=== PATIENT | male | born 1950 | race Caucasian/White ===

== ENCOUNTER 2017-04-03 15:29 | Inpatient (IN) | payer MEDICARE, OTHER ==
[~2017-04-03] VITALS: Ht 185.4 cm; Wt 152.3 kg
[2017-04-03 16:09] LABS: BASOPHILS 0.2 % (0-2); EOSINOPHILS 1.7 % (0-7); HEMATOCRIT 39.9 % (42.0-54.0); HEMOGLOBIN 13.3 g/dL (13.5-17.5); IMMATURE GRANULOCYTES 1.5 % (0-5); LYMPHOCYTES 16.3 % (15-50); MCH 32.8 pg (26.0-34.0); MCHC 33.3 g/dL (31.0-37.0); MCV 98.5 fL (80.0-100.0); MEAN PLATELET VOLUME 10.3 fL (7.4-10.4); MONOCYTES 7.7 % (2-11); NEUTROPHILS 72.6 % (40-80); PLATELET COUNT 241 10x3/uL (130-400); RBC 4.05 10x6/uL (4.20-6.10); RDW 12.7 % (11.5-14.5); WBC 8.9 10x3/uL (4.8-10.8)
[2017-04-03 17:08] LABS: ALKALINE PHOSPHATASE 87 U/L (46-116); ALT (SGPT) 22 U/L (10-68); BILIRUBIN - TOTAL 0.23 mg/dL (0.2-1.3); CALC OSMOLALITY 287 mosm/kg (275-300); CARBON DIOXIDE 30.8 mmol/L (21.0-32.0); CHLORIDE - SERUM 101 mmol/L (98-107); CREATINE KINASE 97 UL (21-232); CREATININE - SERUM 1.1 mg/dL (0.6-1.3); GLUCOSE 272 mg/dL (74-106); POTASSIUM - SERUM 4.6 mmol/L (3.5-5.1); PRO BNP 201 pg/mL (0-125); PROTEIN - SERUM 6.1 g/dL (6.4-8.2); SODIUM 138 mmol/L (136-145); UREA NITROGEN 18 mg/dL (7-18); eGFR NON AFRICAN AMERICAN 71 mL/min (90-120)
[2017-04-03 17:11] LABS: TROPONIN-I < 0.017 ng/mL (0.000-0.060)
[2017-04-03 19:00] VITALS: BP 127/64
--- NOTE | 2017-04-03 19:45 | NUR ---
ARRIVED ON UNIT VIA W/C BY ER STAFF.
--- NOTE | 2017-04-03 20:00 | NUR ---
PT IN BED WITH HOB UP FOR COMFORT. ALERT & ORIENTED. 02 @ 1L VIA N/C. 20 GAUGE LEFT HAND. BED IN LOWEST POSITION AND CALL LIGHT WITHIN REACH. RN TO DO ASSESSMENT.
[2017-04-03] MEDS ORDERED: FLOMAX0.4 MG PO (20:10)
[2017-04-03] MEDS ORDERED: LANTUS SOL100 UNIT/1 SC (20:10)
[2017-04-03] MEDS ORDERED: ZESTRIL20 MG PO (20:10)
[2017-04-03] MEDS ORDERED: METOPROLOL TART50 MG PO (20:11)
[2017-04-03] MEDS ORDERED: EFFEXOR100 MG PO (20:11)
[2017-04-03] MEDS ORDERED: CELEBREX200 MG PO (20:14)
[2017-04-03] MEDS ORDERED: LIPITOR40 MG PO (20:14)
--- NOTE | 2017-04-03 20:28 | NUR ---
BUSINESS ENTERPRISE OFFICER AT BEDSIDE TO OBTAIN VITALS, CALL LIGHT IN REACH. WILL CONTINUE WITH PLAN OF CARE.
[2017-04-04] VITALS: BP 144/77
--- NOTE | 2017-04-04 03:20 | NUR ---
PT IN BED WITH HOB UP FOR COMFORT. EYES CLOSED. CHEST RISING AND FALLING. BED IN LOWEST POSITION AND CALL LIGHT WITHIN REACH.
[2017-04-04 04:00] VITALS: BP 140/69
--- NOTE | 2017-04-04 08:14 | NUR ---
ASLEEP. WILL CONTINUE TO MONITOR.
[2017-04-04 08:28] VITALS: BP 142/78
[2017-04-04 11:56] VITALS: BP 137/77
[2017-04-04 14:43] VITALS: Ht 185.4 cm; Wt 152.3 kg
[2017-04-04 15:11] VITALS: BP 155/71
--- NOTE | 2017-04-04 16:27 | NUR ---
IV RESTARTED WITH 20 GA 1 IN. IN L HAND ON 1ST ATTEMPT. PT HAS BEEN SITTING UP IN CHAIR MOST OF DAY. WITH O2 ON @ 1.
--- NOTE | 2017-04-04 16:54 | NUR ---
Patient Name: ИРИНА CALLES Admission Status: ER Accout number: [id number] Admission Date: 04-03-2017 : 1950 Admission Diagnosis: Attending: OSBALDO Current LOS: 1 Anticipated DC Date: Planned Disposition: Home Primary Insurance: MEDICARE A & B Discharge Planning Comments: * Is the patient Alert and Oriented? Yes 0 * How many steps to enter\exit or inside your home? NONE 0 * PCP DR. BUTTS 0 * Pharmacy [facility] 0 * Preadmission Environment Home Alone 0 * ADLs Independent 0 * Equipment Nebulizer 0 * Other Equipment NO MEDICAL EQUIPMENT PROVIDER PREFERENCE 0 * List name and contact numbers for known caregivers / representatives who currently or will assist patient after discharge: AMANDA CALLES, SON, 0 * Community resources currently utilized None 0 * Please name any agencies selected above. NONE 0 * Additional services required to return to the preadmission environment? No 0 * Can the patient safely return to the preadmission environment? Yes 0 * Has this patient been hospitalized within the prior 30 days at any hospital? No 0 CM MET WITH PT IN ROOM TO DISCUSS DISCHARGE PLANNING AND NEEDS. PT REPORTS LIVING AT HOME INDEPENDENTLY AND ALONE. PT HAS NEBULIZER WITH NO MEDICAL EQUIPMENT PROVIDER PREFERENCE. PT HAS NO OUTSIDE SERVICES ASSISTING IN THE HOME. CM DISCUSSED AVAILABILITY OF HOME HEALTH, REHAB SERVICES AND MEDICAL EQUIPMENT. PT DENIES DISCHARGE NEEDS, REPORTS HIS SON WILL PICK HIM UP FOR DISCHARGE HOME. PT PLANS TO DISCHARGE HOME ALONE, DENIES DISCHARGE NEEDS AT THIS TIME. CM TO FOLLOW AND ASSIST IF NEEDED. Speedboat Driver: Misael Manuel
[2017-04-04 19:00] VITALS: BP 148/94
--- NOTE | 2017-04-04 19:15 | NUR ---
RECEIVED REPORT, PT SITTING UP IN CHAIR, PT DENIES ANY NEEDS AT THIS TIME, CALL LIGHT IN REACH, WILL CONTINUE PLAN OF CARE
--- NOTE | 2017-04-04 23:40 | NUR ---
SCIENCE ANALYST AT BEDSIDE TO OBTAIN VITALS, CALL LIGHT IN REACH. WILL CONTINUE WITH PLAN OF CARE.
[2017-04-05] VITALS: BP 123/60
--- NOTE | 2017-04-05 02:20 | NUR ---
ASSESSMENT COMPLETE, SEE FLOWSHEET, PT IS SLEEPING, NO DISTESS NOTICED, BED IS LOW, SRX2, CALL LIGHT IN REACH, WILL CONTINUE PLAN OF CARE
[2017-04-05 04:00] VITALS: BP 121/60
[2017-04-05 05:16] LABS: BASOPHILS 0.1 % (0-2); EOSINOPHILS 0 % (0-7); HEMATOCRIT 38.5 % (42.0-54.0); HEMOGLOBIN 12.8 g/dL (13.5-17.5); IMMATURE GRANULOCYTES 0.7 % (0-5); LYMPHOCYTES 6.7 % (15-50); MCH 32.4 pg (26.0-34.0); MCHC 33.2 g/dL (31.0-37.0); MCV 97.5 fL (80.0-100.0); MEAN PLATELET VOLUME 10.4 fL (7.4-10.4); MONOCYTES 4.5 % (2-11); PLATELET COUNT 255 10x3/uL (130-400); RBC 3.95 10x6/uL (4.20-6.10); RDW 12.6 % (11.5-14.5)
[2017-04-05 05:24] LABS: WBC 12.3 10x3/uL (4.8-10.8)
[2017-04-05 05:43] LABS: ALBUMIN 2.8 g/dL (3.4-5.0); BILIRUBIN - TOTAL 0.2 mg/dL (0.2-1.3); CALCIUM 8.8 mg/dL (8.5-10.1); CARBON DIOXIDE 29.6 mmol/L (21.0-32.0); CREATININE - SERUM 1.2 mg/dL (0.6-1.3); POTASSIUM - SERUM 4.6 mmol/L (3.5-5.1); PROTEIN - SERUM 6.3 g/dL (6.4-8.2)
--- NOTE | 2017-04-05 07:33 | NUR ---
AM ROUNDING- RECEIVED REPORT FROM BARREL BANDER NURSE PAOLA. PT IS CURRENTLY LAYING IN BED ON RIGHT SIDE WITH EYES CLOSED RESTING. ON 02 AT 1L VIA NC. NO MONITOR. IV SEEN TO LEFT HAND THAT IS CURRENTLY SALINE LOCKED. NO NEED AT CURRENT TIME. WILL CONTINUE TO MONITOR AND CONTINUE WITH PLAN OF CARE.
[2017-04-05 08:44] VITALS: BP 142/82
--- NOTE | 2017-04-05 11:44 | NUR ---
DR. SHERWOOD ON UNIT. RELAYED INFORMATION THAT DR. BUTTS LEFT IN NURSING MESSAGE. DR. SHERWOOD READ NURSING MESSAGE. WILL AWAIT NEW ORDERS AND CONTINUE TO MONITOR.
[2017-04-05 12:00] VITALS: BP 128/54
--- NOTE | 2017-04-05 13:38 | NUR ---
CALLED DR. OLIVEROS OFFICE AND SPOKE WITH PASCALE, DR. OLIVEROS NURSE. INFORMED PASCALE OF WHAT DR. SHERWOOD STATED REGARDING DR. BUTTS HAVING TO PUT DISCHARGE ORDERS IN DUE TO DR. BUTTS BEING ADMITTING DOCTOR. PASCALE STATES SHE WILL LET DR. BUTTS KNOW. WILL AWAIT CALLBACK AND CONTINUE TO MONITOR.
--- NOTE | 2017-04-05 14:39 | NUR ---
Patient Name: ИРИНА CALLES Encounter No: [id number] : 1950 Primary Insurance: MEDICARE A & B Anticipated DC Date: Planned Disposition: Home DCP follow-up note: CM SPOKE TO DR. SHERWOOD WHO INFORMED CM THAT PT WILL NEED OVERNIGHT PULSE OX TESTING AT HOME AND TESTING FOR OXYGEN. CM SPOKE TO BEDSIDE NURSE, PT 91% AT REST ON ROOM AIR, 86% ON ROOM AIR DURING EXERTION WITH RECOVERY TO 91% AT 2 LITERS. CM SPOKE TO PT IN ROOM. PT UNDERSTANDS ORDER, HAS NO PREFERENCE ON MEDICAL EQUIPMENT COMPANY. PT DENIES FURHTER DISCHARGE NEEDS AND WILL BE CALLING HIMSELF A [facility] FOR TRANSPORT HOME WITH ALL ARRANGEMENTS ARE COMPLETED TODAY. CM CALLED [facility], , SPOKE TO CEDRICK AND PROVIDED REFERRAL FOR OVERNIGHT TESTING AND PORTABLE OXYGEN. CM FAXED REFERRAL TO [facility] AT [phone]. [facility] TO ARRANGE PORTABLE OXYGEN FOR DISCHARGE HOME TODAY AND DELIVER PORTABLE OXYGEN TO PT'S ROOM SHORTLY. [facility] TO CALL PT ON HIS CELL PHONE TO ARRANGE APPOINTMENT AT HOME TONIGHT FOR OVERNIGHT PULSE OXIMETRY TESTING, WITH PT AGREEMENT. PT NOTIFIED. BEDSIDE NURSE NOTIFIED. NO FURTHER DISCHARGE NEEDS IDENTIFIED. Misael Manuel, CASE MANAGEMENT
--- NOTE | 2017-04-05 15:55 | NUR ---
CALLED DR. OLIVEROS OFFICE FOR SECOND TIME AND SPOKE WITH EVELIA. EVELIA INFORMED ME SHE WOULD TALK TO DR. BUTTS REGARDING NURSING MESSAGE ABOUT D/C PT ONCE PULMONARY SEES PT. WILL AWAIT CALLBACK AND CONTINUE TO MONITOR.
--- NOTE | 2017-04-05 16:46 | NUR ---
PT IS CURRENTLY SITTING UP IN CHAIR AWAITING D/C PAPERWORK. WILL GIVE PT D/C INSTRUCTIONS AND EXPLAIN D/C PAPERWORK TO PT ONCE DONE. WILL CONTINUE TO MONITOR.
--- NOTE | 2017-04-05 17:45 | NUR ---
D/C INSTRUCTIONS EXPLAINED TO PT. D/C PAPERWORK SIGNED BY PT AND PLACED IN CHART. IV TO LEFT HAND REMOVED WITH CATH TIP INTACT. PRESSURE HELD ON PT UNTIL BLEEDING STOPPED. COVERED SITE WITH 2X2 GUAZE PAD AND SECURED WITH TAPE. TOLERATED WELL. PT D/C VIA WHEELCHAIR. PT STATES HE CALLED [facility] TO COME GET HIM. OSMEL, HOME HEALTH REGISTERED NURSE AWARE.
--- NOTE | 2017-04-12 10:09 | EC ---
PATIENT:ИРИНА CALLES DATE OF SERVICE: 04/03/17 SEX: M MEDICAL RECORD: [id number] DATE OF : [birth year] LOCATION:D.M2 D.213 AGE OF PATIENT: 66 ADMISSION DATE: 04/03/17 REFERRING PHYSICIAN: INTERPRETING PHYSICIAN: TEA DOCKERY MD ECHOCARDIOGRAM REPORT ECHO CHARGES 4 ECHO COMPLETE CLINICAL DIAGNOSIS: ECHOCARDIOGRAPHIC MEASUREMENTS (adult normal given) AC root (d.<3.7cm) 3.0 LV Septum d (<1.2 cm> 1.8 Valve Excursion 2.0 LV Septum (systole) 2.2 Left Atria (s.<4.0cm> 5.0 LVPW d(<1.2cm) 1.6 RV (d.<2.3cm) 3.6 LVPW (sytole) 2.5 LV diastole(<5.6CM) 5.8 MV E-F(>70mm/sec) LV systole 3.2 LVOT Diameter 2.6 MV exc.(>10mm) Est.ejection fraction (50-75%) Pericardial Effusion N DOPPLER: LVIT A 66.0 E 101 LA RVSP 34.0 LVOT 134 AOP1/2T Asc. Ao 151 RVOT 71.0 RA PA 107 AV Gradient Peak 9.1 AV Mean 4.3 AV Area 4.1 MV Gradient Peak 7.7 MV Mean 2.3 MV Area COMMENTS: Aircraft Cleaner: Livan WALKEROE Inverform Machine Operator:2 Dr. Alegria TAPE# PACS TWO-DIMENSIONAL ECHOCARDIOGRAM WITH DOPPLER 1. Left ventricular chamber size is within normal limits. Left ventricular systolic function is normal. Overall ejection fraction is estimated at 60 percent. 2. Left atrium is enlarged at 5.0 centimeters. Right atrium and right ventricular chamber sizes are as well mildly dilated. 3. Valvular structures have normal structure and motion. 4. Doppler interrogation reveals trace mitral regurgitation, mild tricuspid regurgitation; no other valvular insufficiency or stenosis. No evidence of pericardial effusion or left ventricular thrombus ECHOCARDIOGRAM REPORT [id number] ИРИНА CALLES JEFFREY MD at 1009 CC: [id number] DICTATION DATE: 04/06/17 1113 LAST SCOURER: TC 04/06/17 1111 DIS IN 04/05/17 [id number] [place] [address]
== END 2017-04-05 17:49 | disposition home or self-care (01) | DRG 313 ==
LOC: D.ER 15:29 → D.M2 19:12
PROVIDERS: Emergency Medicine; ADMIT Family Medicine
DX: R07.9 Chest pain, unspecified (principal); Z68.41 Body mass index [BMI] 40.0-44.9, adult; I10 Essential (primary) hypertension; E11.9 Type 2 diabetes mellitus without complications; Z79.4 Long term (current) use of insulin; K21.9 Gastro-esophageal reflux disease without esophagitis

== ENCOUNTER → 2017-08-27 19:28 | Outpatient (CLI) | payer MEDICARE, OTHER ==
[2017-04-04 14:43] VITALS: BMI 43.7
[~2017-08-27 19:28] MED LIST: CELEBREX200 MG PO; EFFEXOR100 MG PO; FLOMAX0.4 MG PO; LANTUS SOL100 UNIT/1 SC; LIPITOR40 MG PO; METOPROLOL TART50 MG PO; PREDNISONE20 MG PO; ZESTRIL20 MG PO
== END | disposition home or self-care (01) ==
LOC: D.SLEEP 08:00
DX: G47.33 Obstructive sleep apnea (adult) (pediatric) (principal); G47.19 Other hypersomnia

== ENCOUNTER → 2017-10-15 08:17 | Outpatient (CLI) | payer MEDICARE, OTHER ==
[2017-04-04 14:43] VITALS: BMI 43.7
[2017-10-16 08:17] LABS: IMMUNOGLOBULIN E 94 IU/mL (0-100)
[2017-10-16 12:15] LABS: IMMUNOGLOBULIN A 182 mg/dL (61-437); IMMUNOGLOBULIN G 632 mg/dL (700-1600)
== END | disposition home or self-care (01) ==
LOC: D.RT 10-08 08:00 → D.LAB 10-08 09:00 → D.RAD 10-08 09:30 → D.RT 08:17
PROVIDERS: Internal Medicine Pulmonary Disease
DX: J45.909 Unspecified asthma, uncomplicated (principal)

== ENCOUNTER 2017-11-02 05:48 | Inpatient (IN) | payer MEDICARE, OTHER ==
[~2017-11-02] VITALS: Ht 185.4 cm; Wt 153.2 kg
--- NOTE | ~2017-11-02 | HP ---
PATIENT: ИРИНА CALLES MEDICAL RECORD: [id number] ACCOUNT: [id number] LOCATION:[address] : [birth year] ADMISSION DATE: 11/02/17 HISTORY AND PHYSICAL EXAMINATION CHIEF COMPLAINT: Shortness of breath and sinus pain and pressure. HISTORY OF PRESENT ILLNESS: A 67-year-old male patient presented to the Emergency Room with complaint of increased shortness of breath, body aches, fever, chills. Started Saturday afternoon, worse this morning, worse in supine position, has a history of COPD with oxygen dependent at 2 liters at home, also history of obstructive sleep apnea, CPAP dependent; history of hypertension; diabetes mellitus, insulin-dependent; depression. REVIEW OF SYSTEMS: GENERAL: No reported change in weight. HEENT: Admits to sinus pain, pressure. Denies visual changes, tinnitus or epistaxis. CARDIOVASCULAR: Denies chest pain, does admit to shortness of breath, dyspnea on exertion. PULMONARY: Denies hemoptysis, denies night sweats. Admits dyspnea on exertion, hypoxemia, oxygen dependent, obstructive sleep apnea as noted above. GASTROINTESTINAL: Denies hematemesis, hematochezia or melena. GENITOURINARY: Denies dysuria. MUSCULOSKELETAL: No acute changes. ENDOCRINE: Denies polyuria, polydipsia, or polyphagia. He is insulin-dependent diabetic. MEDICATIONS: Metoprolol, Lantus inhaler, Effexor, oxygen at 2 liters. He also uses CPAP. ALLERGIES: METFORMIN, SULFA DRUGS. PHYSICAL EXAMINATION: VITAL SIGNS: Temp 98, blood pressure is 149/77, heart rate 86, respirations 34. NEUROLOGICAL: Alert, oriented and anxious. HEENT: Normocephalic, atraumatic. Eyes: Pupils are equally round and reactive. Ears: Canals patent. TMs are intact. Nose: Nares patent, erythematous mucosa, right maxillary sinus tenderness. Throat: No erythema, no exudates. NECK: Supple. No lymphadenopathy, no JVD. HEART: Regular rate and rhythm. No S3, S4, no rub. LUNGS: Diminished breath sounds. Breathing is nonlabored with supplemental O2. ABDOMEN: Soft, obese, nontender. EXTREMITIES: Present times 4, no edema. NEUROLOGIC: Cranial nerves II through XII intact. No focal deficits. SKIN: Warm and dry. No rash. LABORATORY DATA: ABG shows a pH of 7.42, pCO2 48, pO2 105, bicarb 31.2. Sodium 138, lactic acid 0.44, hemoglobin 13.3, hematocrit 39, potassium 4.0, glucose 151. CBC: White count 7.6, hemoglobin 12.7, hematocrit 38.4, platelets 178, neutrophils slightly elevated at 6.57, creatinine 1.1, BUN is 20. LFTs normal. Troponin is less than 0.017. CK is 109. Influenzae A and B negative. Chest x-ray; moderate poor inspiration, atelectasis in both lower lobes, possible interstitial pneumonia. HISTORY AND PHYSICAL [id number] ИРИНА CALLES ASSESSMENT AND PLAN: 1. Hypoxemia, respiratory distress, possible early pneumonia, obstructive sleep apnea, insulin-dependent diabetes, likely sinusitis. The patient is admitted. IV antibiotics started in the Emergency Room. With his multiple comorbidities, chronic obstructive pulmonary disease, obstructive sleep apnea, we will also consult pulmonology. With this sinus symptoms, facial pain, we will obtain CT of sinuses. 2. Diabetes. Continue home medications, monitor, supportive care. TRANSINT:[id number] Voice Confirmation ID: [id number] DOCUMENT ID: [id number] GHASSAN OLSON DO at 1228 CC: [id number] DICTATION DATE: 11/02/17 142 MEMBERSHIP COORDINATOR: 11/02/17 1611 ADM IN [facility] [address] [id number]
[~2017-11-02 05:48] MED LIST changes: -PREDNISONE20 MG PO
[2017-11-02 06:19] LABS: BASOPHILS 0.1 % (0-2); EOSINOPHILS 0.5 % (0-7); HEMATOCRIT 38.4 % (42.0-54.0); HEMOGLOBIN 12.7 g/dL (13.5-17.5); IMMATURE GRANULOCYTES 0.5 % (0-5); LYMPHOCYTES 5.5 % (15-50); MCH 32.9 pg (26.0-34.0); MCHC 33.1 g/dL (31.0-37.0); MCV 99.5 fL (80.0-100.0); MEAN PLATELET VOLUME 10.2 fL (7.4-10.4); MONOCYTES 6.7 % (2-11); NEUTROPHILS 86.7 % (40-80); RBC 3.86 10x6/uL (4.20-6.10); RDW 13.1 % (11.5-14.5); WBC 7.6 10x3/uL (4.8-10.8)
[2017-11-02 06:20] LABS: PLATELET COUNT 178 10x3/uL (130-400)
[2017-11-02 06:35] LABS: ALBUMIN 3.4 g/dL (3.4-5.0); ALKALINE PHOSPHATASE 59 U/L (46-116); ALT (SGPT) 29 U/L (10-68); BILIRUBIN - TOTAL 0.26 mg/dL (0.2-1.3); CALC OSMOLALITY 283 mosm/kg (275-300); CALCIUM 9.1 mg/dL (8.5-10.1); CARBON DIOXIDE 30.9 mmol/L (21.0-32.0); CHLORIDE - SERUM 101 mmol/L (98-107); CREATININE - SERUM 1.1 mg/dL (0.6-1.3); GLUCOSE 156 mg/dL (74-106); PROTEIN - SERUM 6.5 g/dL (6.4-8.2); SODIUM 139 mmol/L (136-145); UREA NITROGEN 20 mg/dL (7-18); eGFR NON AFRICAN AMERICAN 71 mL/min (90-120)
[2017-11-02 06:44] LABS: CREATINE KINASE 109 UL (21-232); PRO BNP 162 pg/mL (0-125)
[2017-11-02 06:47] LABS: TROPONIN-I < 0.017 ng/mL (0.000-0.060)
[2017-11-02 08:03] VITALS: BP 157/84; BMI 46.5
[2017-11-02 11:50] VITALS: Ht 185.4 cm; Wt 153.2 kg
[2017-11-02 16:52] VITALS: BP 138/65
[2017-11-02 16:55] VITALS: BP 129/79
[2017-11-02 19:00] VITALS: BP 160/57
[2017-11-03] VITALS: BP 133/51
[2017-11-03 04:00] VITALS: BP 155/79
[2017-11-03 04:30] LABS: BASOPHILS 0 % (0-2); EOSINOPHILS 0 % (0-7); HEMATOCRIT 38.5 % (42.0-54.0); HEMOGLOBIN 12.5 g/dL (13.5-17.5); IMMATURE GRANULOCYTES 0.4 % (0-5); LYMPHOCYTES 8.2 % (15-50); MCH 32.6 pg (26.0-34.0); MCHC 32.5 g/dL (31.0-37.0); MCV 100.5 fL (80.0-100.0); MEAN PLATELET VOLUME 10.4 fL (7.4-10.4); MONOCYTES 12.1 % (2-11); NEUTROPHILS 79.3 % (40-80); PLATELET COUNT 179 10x3/uL (130-400); RBC 3.83 10x6/uL (4.20-6.10); RDW 13.1 % (11.5-14.5); WBC 7.1 10x3/uL (4.8-10.8)
[2017-11-03 04:56] LABS: ANION GAP 9.5 mmol/L (8-16); CALCIUM 8.7 mg/dL (8.5-10.1); CARBON DIOXIDE 30.9 mmol/L (21.0-32.0); CREATININE - SERUM 1.2 mg/dL (0.6-1.3); POTASSIUM - SERUM 4.4 mmol/L (3.5-5.1)
[2017-11-03 08:21] VITALS: BP 159/82
[2017-11-03 12:06] VITALS: BP 123/54
[2017-11-03 16:12] VITALS: BP 132/67
[2017-11-03 21:26] VITALS: BP 145/77
[2017-11-04 01:03] VITALS: BP 140/70
[2017-11-04 04:54] VITALS: BP 146/77
[2017-11-04 05:43] LABS: BASOPHILS 0.2 % (0-2); EOSINOPHILS 0 % (0-7); HEMATOCRIT 40.4 % (42.0-54.0); HEMOGLOBIN 13.1 g/dL (13.5-17.5); IMMATURE GRANULOCYTES 0.2 % (0-5); LYMPHOCYTES 8.8 % (15-50); MCH 32.8 pg (26.0-34.0); MCHC 32.4 g/dL (31.0-37.0); MEAN PLATELET VOLUME 10.9 fL (7.4-10.4); MONOCYTES 8.1 % (2-11); NEUTROPHILS 82.7 % (40-80); PLATELET COUNT 197 10x3/uL (130-400); WBC 5.8 10x3/uL (4.8-10.8)
[2017-11-04 06:14] LABS: ANION GAP 10.2 mmol/L (8-16); CALCIUM 8.9 mg/dL (8.5-10.1); CARBON DIOXIDE 31.3 mmol/L (21.0-32.0); CREATININE - SERUM 1.3 mg/dL (0.6-1.3); POTASSIUM - SERUM 4.5 mmol/L (3.5-5.1)
[2017-11-04 08:01] VITALS: BP 160/80
[2017-11-04 11:26] VITALS: BP 143/78
[2017-11-04 15:41] VITALS: BP 152/95
[2017-11-04 19:00] VITALS: BP 161/93
[2017-11-05] VITALS: BP 131/80
[2017-11-05 04:00] VITALS: BP 169/63
[2017-11-05 08:06] VITALS: BP 132/63
[2017-11-05 12:39] VITALS: BP 153/72
[2017-11-05 15:55] VITALS: BP 128/54
[2017-11-05 20:00] VITALS: BP 130/69
[2017-11-06] VITALS: BP 132/80
[2017-11-06 04:00] VITALS: BP 132/78
[2017-11-06 05:03] LABS: BASOPHILS 0 % (0-2); EOSINOPHILS 0 % (0-7); HEMATOCRIT 39.1 % (42.0-54.0); HEMOGLOBIN 12.8 g/dL (13.5-17.5); IMMATURE GRANULOCYTES 0.1 % (0-5); LYMPHOCYTES 8.7 % (15-50); MCH 32.6 pg (26.0-34.0); MCHC 32.7 g/dL (31.0-37.0); MCV 99.5 fL (80.0-100.0); MEAN PLATELET VOLUME 10.6 fL (7.4-10.4); MONOCYTES 7.2 % (2-11); PLATELET COUNT 205 10x3/uL (130-400); RBC 3.93 10x6/uL (4.20-6.10); RDW 12.6 % (11.5-14.5)
[2017-11-06 05:09] LABS: WBC 7.8 10x3/uL (4.8-10.8)
[2017-11-06 05:43] LABS: ALBUMIN 3.1 g/dL (3.4-5.0); ANION GAP 12.1 mmol/L (8-16); BILIRUBIN - TOTAL 0.24 mg/dL (0.2-1.3); CALCIUM 8.8 mg/dL (8.5-10.1); CARBON DIOXIDE 30.7 mmol/L (21.0-32.0); CREATININE - SERUM 1.2 mg/dL (0.6-1.3); POTASSIUM - SERUM 4.8 mmol/L (3.5-5.1); PROTEIN - SERUM 5.8 g/dL (6.4-8.2)
[2017-11-06 11:01] VITALS: BP 176/88
[2017-11-06] MEDS ORDERED: PREDNISONE20 MG PO (11:34)
== END 2017-11-06 13:15 | disposition home or self-care (01) | DRG 866 ==
LOC: D.ER 05:48 → D.M2 07:07
PROVIDERS: Emergency Medicine; Family Medicine
DX: B34.9 Viral infection, unspecified (principal); D80.3 Selective deficiency of immunoglobulin G [IgG] subclasses; J96.11 Chronic respiratory failure with hypoxia; J45.909 Unspecified asthma, uncomplicated; J42 Unspecified chronic bronchitis; E78.5 Hyperlipidemia, unspecified; N40.0 Benign prostatic hyperplasia without lower urinary tract symptoms; Z86.718 Personal history of other venous thrombosis and embolism; I07.1 Rheumatic tricuspid insufficiency; I71.2 Thoracic aortic aneurysm, without rupture; G47.33 Obstructive sleep apnea (adult) (pediatric); I10 Essential (primary) hypertension; E11.9 Type 2 diabetes mellitus without complications; Z79.4 Long term (current) use of insulin; F32.9 Major depressive disorder, single episode, unspecified; Z99.81 Dependence on supplemental oxygen

== ENCOUNTER → 2018-04-14 13:42 | Outpatient (CLI) | payer MEDICARE, OTHER ==
[2017-11-02 11:50] VITALS: BMI 46.4
[~2018-04-14 13:42] MED LIST changes: +PREDNISONE20 MG PO
== END | disposition home or self-care (01) ==
LOC: D.RT 13:42
DX: J98.6 Disorders of diaphragm (principal); J68.3 Other acute and subacute respiratory conditions due to chemicals, gases, fumes and vapors

== ENCOUNTER 2020-12-09 15:18 | Emergency (ER) | payer MEDICARE ==
[~2020-12-09] VITALS: Ht 185.4 cm; Wt 159.1 kg
[~2020-12-09 15:18] MED LIST changes: +AUGMENTIN 875-11 TAB PO; +CLINDAMYCIN HC300 MG PO; +DOXYCYCLINE HY100 M2 PO; +K-TAB10 MEQ PO; +LANTUS INS100 UNITS/ SC; +LASIX40 MG PO; +LEVAQUIN750 MG PO; +MUCINEX600 MG PO; +MUPIROCIN22 GM TOPICAL; +PREDNISONE10 MG PO; +SINGULAIR10 MG PO; +TYLENOL W/CODEI1 TAB PO
[2020-12-09 15:39] VITALS: Ht 185.4 cm; Wt 159.1 kg
== END 2020-12-09 21:10 ==
LOC: D.ER 15:18
DX: I46.9 Cardiac arrest, cause unspecified (principal); J44.9 Chronic obstructive pulmonary disease, unspecified; E66.01 Morbid (severe) obesity due to excess calories; I11.0 Hypertensive heart disease with heart failure; I50.9 Heart failure, unspecified; E11.9 Type 2 diabetes mellitus without complications